=== PATIENT | male | born 1935 | race Caucasian/White ===

== ENCOUNTER → 2022-05-19 | Outpatient (CLI) | payer MEDICARE, SELFPAY ==
--- NOTE | 2022-05-19 12:53 | CT_ITS ---
STUDY: CT MAXILLOFACIAL SINUSES REASON FOR EXAM: Male, 87 years old. SINUSITIS RADIATION DOSAGE (If Supplied By Facility): CTDIvol = ( 33.06 ) mGy, DLP = ( 908.23 ) mGycm TECHNIQUE: The patient was scanned in a multi detector CT scanner. High resolution axial imaging was performed without the administration of intravenous contrast material. Sagittal and coronal images were reconstructed. Individualized dose optimization techniques were used for this CT. COMPARISON: None. FINDINGS: FRONTAL SINUSES: Mild mucosal thickening of the frontal sinuses bilaterally. ETHMOIDAL SINUSES: Normal aeration, without mucosal inflammatory disease. MAXILLARY SINUSES: Minimal degree of mucosal thickening along the medial wall of the inferior aspect of the left maxillary sinus. SPHENOIDAL SINUSES: Normal aeration, without mucosal inflammatory disease. There is patency of the bilateral maxillary infundibuli with normal uncinate processes, ethmoid bullae, and hiatus semilunaris. Normal bilateral middle turbinates. Normal bilateral inferior turbinates. There is a right sided nasal septal deviation, but without a nasal septal spur. There is patency of the bilateral nasal airways. The visualized osseous structures are normal. The visualized bilateral orbital contents are normal. CT/Sinus/Facial Bone IMPRESSION: Mild degree of mucosal thickening along the inferior medial aspect of the left maxillary sinus and frontal sinuses. Electronically Signed: Filemon Ratliff MD at 13:36 EDT ,
== END | disposition home or self-care (01) ==
PROVIDERS: PCP Student in an Organized Health Care Education/Training Program; Referring Provider Otolaryngology; Visit Provider Otolaryngology
DX: J32.8 Other chronic sinusitis (principal)
CPT/HCPCS: 70486

== ENCOUNTER 2022-10-11 12:00 | Day surgery (SDC) | payer MEDICARE, SELFPAY ==
[2022-10-11] VITALS (7 sets, daily range): BP systolic 127–148; BP diastolic 65–71; PULSE 48–55; RESP 14–16; TEMP 36.4; O2SAT 97–100; BMI 24.3
[2022-10-11] MEDS: Lactated Ringers 1,000 ML 15 ML IV (12:50)
[2022-10-11 13:46] LABS: Bedside Glucose 105 mg/dL (74-106)
--- NOTE | 2022-10-11 14:26 | DCINST_ITS ---
Discharge Instructions Diet Discharge Diet: No restrictions Activity Discharge Activity: Return to Normal Activity Dressing / Incision Call your doctor if your incision/area has: Increased Pain/ Swelling Follow Up Care Please Follow Up With: Levi Tatum MD When: 4 weeks Test Results: Test results from this visit will be discussed in further detail at your follow- up appointment, if applicable. Discharge Plan Admission Attending Provider: Levi Tatum Primary Care Provider: Pepe Ortiz Discharge Orders/Prescriptions Prescriptions: No Action tamsulosin 0.4 mg capsule 0.4 mg PO DAILY Label Comments: TAKE ONE TABLET BY MOUTH EVERY DAY aspirin [Baby Aspirin] 81 mg Tablet,Chewable 81 mg PO QWEEK multivitamin Capsule 1 cap PO DAILY zinc 10 mg Tablet 50 mg PO DAILY metformin 750 mg tablet extended release 24 hr 750 mg PO DAILY Referrals / Follow Up: Pepe Ortiz DO [Primary Care Provider] - Disposition Disposition (needs filled in before D/C Order can be placed): Home, Self Care
--- NOTE | 2022-10-11 14:28 | OP.PCM_ITS ---
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 eustachian tube dysfunction, right and left 2. chronic serous otitis, right and left Surgeon: Levi Tatum Type of Anesthesia: General Description of Procedure: on the day of the procedure, after appropriate informed consent was obtained the patient was brought to the operating room and placed in supine position on the operating table.? he was placed under general endotracheal anesthesia by the anesthesiologist.? the left ear was examined with the binocular operating microscope.? a speculum was placed.? the tympanic membrane was viewed in its entirety and found to be intact.? a radial myringotomy was made in the anterior/inferior quadrant.? a T tube was placed.? floxin otic drops were instilled.? the right ear was examined with the binocular operating microscope.? a speculum was placed.? the tympanic membrane was viewed in its entirety and found to be intact.? a radial myringotomy was made in the anterior/inferior quadrant.? a T tube was placed.? floxin otic drops were instilled.? the zero degree endoscope was used to evaluate the nasal cavity after they were decongested with oxymetazoline soaked pledgets. the acclarent AERA system was advanced into the right nasal cavity until the eustachian tube orifice was visualized. the catheter was advanced into the eustachian tube until a soft stop was felt. it was inflated to 12 sharri for two minutes and removed. the acc larent AERA system was advanced into the left nasal cavity until the eustachian tube orifice was visualized. the catheter was advanced into the eustachian tube until a soft stop was felt. it was inflated to 12 sharri for two minutes and removed. he was awoken from anesthesia and transferred to the PACU in stable condition.
[2022-10-11] MEDS: Ciprofloxacin 0.3% 2.5ml Bottle 1 DRP (14:46)
[2022-10-11] MEDS: Oxymetazoline 0.05% 1 SPRAY SPRAY.BTL 15 SPRAY (14:46)
[2022-10-11 16:25] LABS: Bedside Glucose 101 mg/dL (74-106)
== END 2022-10-11 16:30 | disposition home or self-care (01) ==
LOC: SDC 12:00 → AC 12:08
PROVIDERS: PCP Student in an Organized Health Care Education/Training Program; Referring Provider Otolaryngology; Visit Provider Otolaryngology
PROC: (CPT 69799; principal; 2022-10-11 13:55)
DX: H65.23 Chronic serous otitis media, bilateral (principal); E11.9 Type 2 diabetes mellitus without complications; H90.41 Sensorineural hearing loss, unilateral, right ear, with unrestricted hearing on the contralateral side; H69.83 Other specified disorders of Eustachian tube, bilateral; Z79.82 Long term (current) use of aspirin; Z79.84 Long term (current) use of oral hypoglycemic drugs; Z79.899 Other long term (current) drug therapy
CPT/HCPCS: 69436; 00126; 82962; J7120; J2405